=== PATIENT | female | born 1975 | race Caucasian/White ===

== ENCOUNTER 2018-12-04 22:57 | Emergency (ER) | payer BC ==
--- NOTE | 2018-12-04 23:27 | ER ---
Nurse's Notes [facility] Name: Katelyn Roland Age: 42 yrs Sex: Female : 1975 Arrival Date: 12/04/2018 Time: 23:02 Bed 26 Private MD: Diagnosis: Acute lymphadenitis of face, head and neck Presentation: 12/04 23:03 Presenting complaint: Patient states: "My left jaw has sever pain. it hurts when I open jd3 my mouth and with my mouth closed. I also can tell my left side of my jaw is swollen too.". Transition of care: patient was not received from another setting of care. Onset of symptoms was December 04, 2018. Risk Assessment: Do you want to hurt yourself or someone else? Patient reports no desire to harm self or others. Initial Sepsis Screen: Does the patient meet any 2 criteria? No. Patient's initial sepsis screen is negative. Does the patient have a suspected source of infection? No. Patient's initial sepsis screen is negative. Care prior to arrival: None. 23:03 Method Of Arrival: Ambulatory [facility] 23:03 Acuity: ERNIE 4 jd3 Triage Assessment: 23:16 Headache History: The patient has had previous headaches. General: Appears in no mg2 apparent distress. comfortable, Behavior is calm, cooperative. Pain: Complains of pain in head and left side of the neck. 23:40 Pain: Also complains of no other associated symptoms. 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 - Social history:: Smoking status: Patient/guardian denies using tobacco. - Ebola Screening: : Patient negative for fever greater than or equal to 101.5 degrees Fahrenheit, and additional compatible Ebola Virus Disease symptoms. Screenin:16 Abuse screen: Denies threats or abuse. Denies injuries from another. Nutritional mg2 screening: No deficits noted. Tuberculosis screening: No symptoms or risk factors identified. Fall Risk None identified. Assessment: 23:14 Pain: Complains of pain in left side of the neck and head Pain currently is 8 out of 10 mg2 on a pain scale. Quality of pain is described as aching, Pain began gradually, 1 day ago. Is intermittent. Neuro: Level of Consciousness is awake, alert, obeys commands, Oriented to person, place, time. Neuro: Reports headache. Cardiovascular: Capillary refill < 3 seconds Patient's skin is warm and dry. Respiratory: Airway is patent Respiratory effort is even, unlabored, Respiratory pattern is regular, symmetrical. GI: No signs and/or symptoms were reported involving the gastrointestinal system. : No signs and/or symptoms were reported regarding the genitourinary system. EENT: No signs and/or symptoms were reported regarding the EENT system. Derm: Skin is intact, is healthy with good turgor, Skin is pink, warm \\T\\ dry. normal. Musculoskeletal: Circulation, motion, and sensation intact. Capillary refill < 3 seconds. Vital Signs: 23:07 BP 153 / 95; Pulse 74; Resp 18 S; Temp 97.6(TE); Pulse Ox 99% on R/A; Weight 127.01 kg jd3 (R); Height 5 ft. 6 in. (167.64 cm) (R); Pain 10/10; 23:40 BP 145 / 78; Pulse 75; Resp 18; Temp 98(O); Pulse Ox 100% on R/A; mg2 23:07 Body Mass Index 45.19 (127.01 kg, 167.64 cm) jd3 ED Course: 23:02 Patient arrived in ED. es 23:05 Triage completed. jd3 23:07 Arm band placed on. jd3 23:10 Zane Underwood, SAMANTHA is Primary Nurse. mg2 23:15 Larry Godinez MD is Attending Physician. tw4 23:16 Patient has correct armband on for positive identification. Pulse ox on. NIBP on. Door mg2 closed. Warm blanket given. 23:16 No provider procedures requiring assistance completed. Patient did not have IV access mg2 during this emergency room visit. Administered Medications: 23:39 Drug: Augmentin 875 mg Route: PO; mg2 23:39 Follow up: Response: No adverse reaction; Medication administered at discharge. mg2 Outcome: 23:27 Discharge ordered by . radha 23:40 Discharged to home ambulatory. mg2 23:40 Condition: stable 23:40 Discharge instructions given to patient, Instructed on discharge instructions, follow up and referral plans. medication usage, Demonstrated understanding of instructions, follow-up care, medications, Prescriptions given X 1. 23:41 Patient left the ED. mg2 Signatures: Princess Richard Jonathon RN RN jd3 Larry Godinez MD MD tw4 Zane Underwood RN RN mg2
--- NOTE | 2018-12-04 23:28 | EDPHYS ---
Physician Documentation [facility] Name: Katelyn Roland Age: 42 yrs Sex: Female : 1975 Arrival Date: 12/04/2018 Time: 23:02 Bed 26 Private MD: ED Physician Larry Godinez HPI: 12/05 00:04 This 42 yrs old Female presents to ER via Ambulatory with complaints of Jaw tw4 Pain, Headache, difficulty opening mouth. 00:04 The patient complains of pain to the forehead. The patient describes the headache as tw4 aching. Onset: The symptoms/episode began/occurred today. Associated signs and symptoms: The patient has no apparent associated signs or symptoms. Severity of symptoms: At its worst the pain was moderate, in the emergency department the pain is unchanged. The patient has not experienced similar symptoms in the past. 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 - Social history:: Smoking status: Patient/guardian denies using tobacco. - Ebola Screening: : Patient negative for fever greater than or equal to 101.5 degrees Fahrenheit, and additional compatible Ebola Virus Disease symptoms. ROS: 12/05 00:04 Constitutional: Negative for fever, chills, and weight loss, Eyes: Negative for injury, tw4 pain, redness, and discharge. Cardiovascular: Negative for chest pain, palpitations, and edema, Respiratory: Negative for shortness of breath, cough, wheezing, and pleuritic chest pain, Abdomen/GI: Negative for abdominal pain, nausea, vomiting, diarrhea, and constipation, Back: Negative for injury and pain, Skin: Negative for injury, rash, and discoloration, Neuro: Negative for headache, weakness, numbness, tingling, and seizure, Psych: Negative for depression, anxiety, suicide ideation, homicidal ideation, and hallucinations. ENT: Positive for jaw pain. Exam: 00:04 Constitutional: This is a well developed, well nourished patient who is awake, alert, tw4 and in no acute distress. Head/Face: Normocephalic, atraumatic. Chest/axilla: Normal chest wall appearance and motion. Nontender with no deformity. No lesions are appreciated. Cardiovascular: Regular rate and rhythm with a normal S1 and S2. No gallops, murmurs, or rubs. Normal PMI, no JVD. No pulse deficits. Respiratory: Lungs have equal breath sounds bilaterally, clear to auscultation and percussion. No rales, rhonchi or wheezes noted. No increased work of breathing, no retractions or nasal flaring. Abdomen/GI: Soft, non-tender, with normal bowel sounds. No distension or tympany. No guarding or rebound. No evidence of tenderness throughout. Back: No spinal tenderness. No costovertebral tenderness. Full range of motion. MS/ Extremity: Pulses equal, no cyanosis. Neurovascular intact. Full, normal range of motion. Neuro: Awake and alert, GCS 15, oriented to person, place, time, and situation. Cranial nerves II-XII grossly intact. Motor strength 5/5 in all extremities. Sensory grossly intact. Cerebellar exam normal. Normal gait. 00:04 Neck: External neck: mass, that is moderate-sized, of the left submandibular area, tw4 Lymph nodes: lymphadenopathy is appreciated, anterior cervical nodes, submandibular nodes. Vital Signs: 12/04 23:07 BP 153 / 95; Pulse 74; Resp 18 S; Temp 97.6(TE); Pulse Ox 99% on R/A; Weight 127.01 kg jd3 (R); Height 5 ft. 6 in. (167.64 cm) (R); Pain 10/10; 23:40 BP 145 / 78; Pulse 75; Resp 18; Temp 98(O); Pulse Ox 100% on R/A; mg2 23:07 Body Mass Index 45.19 (127.01 kg, 167.64 cm) jd3 MDM: 23:15 Patient medically screened. tw4 12/05 00:14 Differential diagnosis: tension headache. Data reviewed: vital signs, nurses notes. tw4 Counseling: I had a detailed discussion with the patient and/or guardian regarding: the historical points, exam findings, and any diagnostic results supporting the discharge/admit diagnosis. Special discussion: I discussed with the patient/guardian in detail that at this point there is no indication for admission to the hospital. It is understood, however, that if the symptoms persist or worsen the patient needs to return immediately for re-evaluation. Administered Medications: 12/04 23:39 Drug: Augmentin 875 mg Route: PO; mg2 23:39 Follow up: Response: No adverse reaction; Medication administered at discharge. mg2 Disposition: 12/04/18 23:27 Discharged to Home. Impression: Acute lymphadenitis of face, head and neck. - Condition is Stable. - Discharge Instructions: Lymphadenopathy. - Prescriptions for Augmentin 875- 125 mg Oral Tablet - take 1 tablet by ORAL route every 12 hours for 10 days; 20 tablet. - Medication Reconciliation Form, Thank You Letter, Antibiotic Education, Prescription Opioid Use form. - Follow up: Private Physician; When: Upon discharge from the Emergency Department; Reason: If symptoms return, Recheck today's complaints, Continuance of care. - Problem is new. - Symptoms have improved. Signatures: Dispatcher [employer] Waldemar Henning RN RN jd3 Larry Godinez MD MD tw4 Zane Underwood RN RN mg2 Corrections: (The following items were deleted from the chart) 23:41 23:27 12/04/2018 23:27 Discharged to Home. Impression: Acute lymphadenitis of face, mg2 head and neck. Condition is Stable. Forms are Medication Reconciliation Form, Thank You Letter, Antibiotic Education, Prescription Opioid Use. Follow up: Private Physician; When: Upon discharge from the Emergency Department; Reason: If symptoms return, Recheck today's complaints, Continuance of care. Problem is new. Symptoms have improved. tw4
[2018-12-04] MEDS ORDERED: AMOX/K CLAV 875 MG TAB ONE (23:35)
== END 2018-12-04 23:41 | disposition home or self-care (01) ==
LOC: ER 22:57
DX: L04.0 Acute lymphadenitis of face, head and neck (principal); F31.9 Bipolar disorder, unspecified
CPT/HCPCS: 99283